=== PATIENT | male | born 1975 | race Caucasian/White ===

== ENCOUNTER 2018-05-16 10:39 | Emergency (ER) | payer BC ==
[~2018-05-16] VITALS: Ht 182.9 cm; Wt 86.2 kg
[~2018-05-16 10:39] MED LIST: ACYCLOVIR 400400 MG PO; NEURONTIN 300300 M1 PO; NORCO 5-325 TA1 EACH PO; OXYCODON-ACETA1 EAC1 PO
[2018-05-16] MEDS ORDERED: DOXYCYCLINE 10100 MG PO (10:51)
[2018-05-16] MEDS ORDERED: HYDROCODONE-AP1 EAC6 PO (11:25)
[2018-05-16] MEDS ORDERED: IBUPROFEN 800800 M1 PO (11:25)
[2018-05-16 11:34] VITALS: BP 126/91
== END 2018-05-16 11:35 | disposition home or self-care (01) ==
LOC: M.ERS 10:39
DX: M79.671 Pain in right foot (principal); J45.909 Unspecified asthma, uncomplicated; Z88.0 Allergy status to penicillin

== ENCOUNTER 2020-06-18 06:53 | Emergency (ER) | payer BC ==
[~2020-06-18] VITALS: Ht 182.9 cm; Wt 83.9 kg
[~2020-06-18 06:53] MED LIST changes: +DOXYCYCLINE 10100 MG PO; +HYDROCODONE-AP1 EAC6 PO; +IBUPROFEN 800800 M1 PO
[2020-06-18] MEDS ORDERED: MEDROLDOSEPACK PO (07:57)
[2020-06-18] MEDS ORDERED: CYCLOBENZAPRINE5 MG PO (07:57)
[2020-06-18] MEDS ORDERED: TORADOL 10 MG T10 MG PO (07:57)
[2020-06-18 08:20] VITALS: BP 133/80
== END 2020-06-18 08:20 | disposition home or self-care (01) ==
LOC: M.ERS 06:53
DX: S39.012A Strain of muscle, fascia and tendon of lower back, initial encounter (principal); J45.909 Unspecified asthma, uncomplicated; Z88.0 Allergy status to penicillin; X50.0XXA Overexertion from strenuous movement or load, initial encounter; Y93.89 Activity, other specified; Y92.89 Other specified places as the place of occurrence of the external cause; Y99.8 Other external cause status

== ENCOUNTER 2020-08-16 05:56 | Emergency (ER) | payer BC ==
[~2020-08-16] VITALS: Ht 182.9 cm; Wt 86.2 kg
[~2020-08-16 05:56] MED LIST changes: +CYCLOBENZAPRINE5 MG PO; +MEDROLDOSEPACK PO; +TORADOL 10 MG T10 MG PO
[2020-08-16] MEDS ORDERED: LORCET 5-325 M1 EACH PO (06:06)
[2020-08-16] MEDS ORDERED: FLEXERIL PO ×2 (06:06→06:37)
[2020-08-16] MEDS ORDERED: TORADOL 10 MG T10 MG PO (06:37)
[2020-08-16] MEDS ORDERED: MEDROLDOSEPACK PO (06:37)
[2020-08-16 07:01] VITALS: BP 144/68
== END 2020-08-16 07:01 | disposition home or self-care (01) ==
LOC: M.ERS 05:56
DX: S39.012A Strain of muscle, fascia and tendon of lower back, initial encounter (principal); J45.909 Unspecified asthma, uncomplicated; F17.210 Nicotine dependence, cigarettes, uncomplicated; Z88.0 Allergy status to penicillin; X50.1XXA Overexertion from prolonged static or awkward postures, initial encounter; Y93.89 Activity, other specified; Y92.89 Other specified places as the place of occurrence of the external cause; Y99.8 Other external cause status